=== PATIENT | male | born 1975 | race Caucasian/White ===

== ENCOUNTER 2018-04-16 11:14 | Inpatient (IN) | payer OTHER ==
[~2018-04-16] VITALS: Ht 177.8 cm; Wt 72.5 kg
[~2018-04-16 11:14] MED LIST: BACTRIM,SEPT1 TABLET PO; DENIES MEDICATIONS; SUBOXONE 2 MG-1 EACH SL
[2018-04-16 12:31] LABS: HEMATOCRIT 31.3 % (38.0-50.0); HEMOGLOBIN 10.8 G/DL (12.5-16.6); MCH 29.9 PG (29.0-34.0); MCHC 34.5 G/DL (30.0-36.0); MCV 86.7 FL (86-99); NRBC (%) 0.3 /100 WBC (0-0); PLATELET COUNT 366 K/uL (156-360); RBC DIS.WIDTH-CV 12.3 % (11.8-14.6); RBC DIS.WIDTH-SD 39.2 % (39-53); RED BLOOD COUNT 3.61 M/uL (4.00-5.50); WHITE BLOOD COUNT 6.9 K/uL (4.1-10.2)
[2018-04-16 12:42] LABS: CHLORIDE 107 mEq/L (99-109); POTASSIUM 3.9 mEq/L (3.7-5.4); SODIUM 143 mEq/L (136-147)
[2018-04-16 12:44] LABS: GLUCOSE 104 mg/dL (70-99)
[2018-04-16 12:48] LABS: CREATININE 0.9 mg/dL (0.6-1.3); GFR ESTIMATE (CALCULATED) > 59 mL/min/ (58.99-99999)
[2018-04-16 12:49] LABS: UREA NITROGEN (BUN) 17 mg/dL (9-23)
[2018-04-16] MEDS ORDERED: SUBOXONE 4 MG-1 EACH SL (14:26)
[2018-04-16] MEDS ORDERED: ADVIL200 MG PO (14:27)
[2018-04-16] MEDS ORDERED: FIORICET 50-301 EAC1 PO (14:57)
[2018-04-16 16:20] LABS: CREATINE KINASE 247 IU/L (1-294)
[2018-04-16 18:18] VITALS: BP 109/64
[2018-04-16 23:45] VITALS: BP 117/64
[2018-04-17 06:36] LABS: BASOPHIL (%) 1.1 % (0-1); BASOPHIL COUNT 0.1 K/uL (0-0.1); EOSINOPHIL (%) 4.1 % (0-5); EOSINOPHIL COUNT 0.3 K/uL (0-0.3); HEMATOCRIT 30.5 % (38.0-50.0); HEMOGLOBIN 9.8 G/DL (12.5-16.6); IMMATURE GRANULOCYTE (%) 0.2 % (0.0-0.7); LYMPHOCYTE COUNT 2.4 K/uL (1.0-2.8); MCH 28.7 PG (29.0-34.0); MCHC 32.1 G/DL (30.0-36.0); MCV 89.4 FL (86-99); MONOCYTE (%) 6.2 % (3-12); MONOCYTE COUNT 0.4 K/uL (0-0.8); NEUTROPHIL (%) 51.4 % (45-76); NEUTROPHIL COUNT 3.3 K/uL (1.8-6.4); PLATELET COUNT 294 K/uL (156-360); RBC DIS.WIDTH-CV 12.5 % (11.8-14.6); RED BLOOD COUNT 3.41 M/uL (4.00-5.50); WHITE BLOOD COUNT 6.4 K/uL (4.1-10.2)
[2018-04-17 06:50] VITALS: BP 95/53
[2018-04-17 07:01] LABS: CHLORIDE 111 MEQ/L (99-109); CREATININE 0.9 MG/DL (0.6-1.3); GFR ESTIMATE (CALCULATED) > 59 mL/min/ (58.99-99999); GLUCOSE 88 mg/dL (70-99); POTASSIUM 4.3 MEQ/L (3.7-5.4); SODIUM 144 MEQ/L (136-147); UREA NITROGEN (BUN) 19 mg/dL (9-23)
[2018-04-17 08:45] VITALS: BP 99/60
[2018-04-17 15:00] VITALS: BP 100/66
[2018-04-17 23:02] VITALS: BP 97/58
[2018-04-17 23:03] VITALS: BP 97/58
[2018-04-18 05:52] LABS: HEMATOCRIT 29.7 % (38.0-50.0); HEMOGLOBIN 9.6 G/DL (12.5-16.6); MCH 29.3 PG (29.0-34.0); MCHC 32.3 G/DL (30.0-36.0); MCV 90.5 FL (86-99); PLATELET COUNT 307 K/uL (156-360); RBC DIS.WIDTH-CV 12.7 % (11.8-14.6); RBC DIS.WIDTH-SD 41.6 % (39-53); RED BLOOD COUNT 3.28 M/uL (4.00-5.50); WHITE BLOOD COUNT 6.2 K/uL (4.1-10.2)
[2018-04-18 06:19] LABS: CHLORIDE 109 MEQ/L (99-109); GFR ESTIMATE (CALCULATED) > 59 mL/min/ (58.99-99999); GLUCOSE 91 mg/dL (70-99); POTASSIUM 4.5 MEQ/L (3.7-5.4); SODIUM 141 MEQ/L (136-147); UREA NITROGEN (BUN) 21 mg/dL (9-23)
[2018-04-18 06:50] VITALS: BP 98/58
[2018-04-18 15:00] VITALS: BP 111/62
[2018-04-18 23:07] VITALS: BP 106/52; BP 113/62
[2018-04-19 07:48] VITALS: BP 98/59
[2018-04-19 15:56] VITALS: BP 126/68
[2018-04-19 23:03] VITALS: BP 106/62
[2018-04-20 06:40] VITALS: BP 97/56
[2018-04-20 15:11] VITALS: BP 112/59
[2018-04-21 00:46] VITALS: BP 113/63
[2018-04-21 02:55] LABS: C DIFF TOXIN NEGATIVE (NEGATIVE)
[2018-04-21 06:45] VITALS: BP 100/57
[2018-04-21] MEDS ORDERED: BACTRIM,SEPT1 TABLET PO (08:50)
[2018-04-21 09:38] LABS: BASOPHIL (%) 0.5 % (0-1); EOSINOPHIL (%) 0.1 % (0-5); HEMATOCRIT 35.4 % (38.0-50.0); IMMATURE GRANULOCYTE (%) 0.4 % (0.0-0.7); LYMPHOCYTE (%) 5.9 % (15-42); LYMPHOCYTE COUNT 0.5 K/uL (1.0-2.8); MCH 29.1 PG (29.0-34.0); MCHC 32.8 G/DL (30.0-36.0); MCV 88.7 FL (86-99); MONOCYTE (%) 4.5 % (3-12); MONOCYTE COUNT 0.4 K/uL (0-0.8); NEUTROPHIL (%) 88.6 % (45-76); NEUTROPHIL COUNT 7.2 K/uL (1.8-6.4); PLATELET COUNT 295 K/uL (156-360); RBC DIS.WIDTH-CV 12.4 % (11.8-14.6); RBC DIS.WIDTH-SD 40.7 % (39-53); RED BLOOD COUNT 3.99 M/uL (4.00-5.50); WHITE BLOOD COUNT 8.1 K/uL (4.1-10.2)
[2018-04-21 09:39] LABS: HEMOGLOBIN 11.6 G/DL (12.5-16.6)
[2018-04-21] MEDS ORDERED: ZOFRAN4 MG PO (10:50)
== END 2018-04-21 14:00 | disposition home or self-care (01) | DRG 603 ==
LOC: EME 11:14 → EDOF 16:24 → 5EAST 16:24 → ENRESERV 16:27 → 5EAST 17:51 → ENPENDDIS 04-21 → 5EAST 04-21 14:00
PROVIDERS: Hospitalist; Nurse Practitioner Family; Physician Assistant; Physician Assistant Medical
DX: L03.116 Cellulitis of left lower limb (principal); L97.419 Non-pressure chronic ulcer of right heel and midfoot with unspecified severity; I96 Gangrene, not elsewhere classified; L97.429 Non-pressure chronic ulcer of left heel and midfoot with unspecified severity; L97.319 Non-pressure chronic ulcer of right ankle with unspecified severity; L97.329 Non-pressure chronic ulcer of left ankle with unspecified severity; F11.20 Opioid dependence, uncomplicated; G89.4 Chronic pain syndrome; F05 Delirium due to known physiological condition; I87.2 Venous insufficiency (chronic) (peripheral); I87.8 Other specified disorders of veins; F41.9 Anxiety disorder, unspecified; L97.529 Non-pressure chronic ulcer of other part of left foot with unspecified severity; I89.0 Lymphedema, not elsewhere classified; L03.115 Cellulitis of right lower limb; L97.519 Non-pressure chronic ulcer of other part of right foot with unspecified severity; B96.89 Other specified bacterial agents as the cause of diseases classified elsewhere; Z16.19 Resistance to other specified beta lactam antibiotics; Z91.19 Patient's noncompliance with other medical treatment and regimen
CPT/HCPCS: 73610; 73630; 73701; 80048; 80202; 81003; 82550; 83605; 83874 90; 85025; 85027; 87040; 87070; 87075; 87076; 87077; 87186; 87205; 87493; 99281; 99284; J0572; J0744; J1644; J1885; J2405; J2543; J3010; J3370; J7050; J7120